=== PATIENT | male | born 1955 | race Two or more races ===

== ENCOUNTER → 2020-11-05 10:47 | Outpatient (BNVA) | payer MEDICARE, MEDICAID, SELFPAY | PROVIDERS: PCP Internal Medicine; Visit Provider Urology | DX: Z13.89 Encounter for screening for other disorder (principal) | CPT/HCPCS: Q3014 ==

== ENCOUNTER → 2021-04-29 08:52 | Outpatient (REF) | payer MEDICARE, MEDICAID, SELFPAY | LOC: HO.SL 08:52 | PROVIDERS: Visit Provider Physician Assistant Medical | DX: G47.33 Obstructive sleep apnea (adult) (pediatric) (principal); G47.31 Primary central sleep apnea | CPT/HCPCS: 95806 ==

== ENCOUNTER → 2021-09-13 08:10 | Outpatient (BNVA) | payer MEDICARE, MEDICAID, SELFPAY | PROVIDERS: Visit Provider Internal Medicine | DX: M79.18 Myalgia, other site (principal) | CPT/HCPCS: 20553; 99202; J3300 ==

== ENCOUNTER → 2021-10-11 08:14 | Outpatient (BNVA) | payer MEDICARE, MEDICAID, SELFPAY | PROVIDERS: PCP Internal Medicine; Visit Provider Internal Medicine | DX: M43.06 Spondylolysis, lumbar region (principal) | CPT/HCPCS: 99212 ==

== ENCOUNTER 2021-11-02 08:25 | Outpatient (REF) | payer MEDICARE, MEDICAID, SELFPAY ==
[2021-11-02 09:47] LABS: Prostate Specific Antigen 2.16 ng/mL (<0.05-4.0)
== END 2021-11-02 08:26 | disposition home or self-care (01) ==
LOC: HO.LAB 08:25
PROVIDERS: Visit Provider Urology
DX: Z12.5 Encounter for screening for malignant neoplasm of prostate (principal); N40.1 Benign prostatic hyperplasia with lower urinary tract symptoms; N13.8 Other obstructive and reflux uropathy
CPT/HCPCS: 36415; 84153

== ENCOUNTER → 2021-11-09 10:06 | Outpatient (BNVA) | payer MEDICARE, MEDICAID, SELFPAY | PROVIDERS: PCP Internal Medicine; Visit Provider Urology | DX: N40.1 Benign prostatic hyperplasia with lower urinary tract symptoms (principal); R35.1 Nocturia; N52.9 Male erectile dysfunction, unspecified | CPT/HCPCS: Q3014 ==

== ENCOUNTER 2021-11-17 06:19 | Outpatient (REF) | payer MEDICARE, MEDICAID, SELFPAY ==
--- NOTE | ~2021-11-17 | FL_ITS ---
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 TECHNIQUE: Fluoroscopy performed by pain management physician. Fluoroscopy time: 0.3 minutes DAP: 0.533 Gycm2 Images: 3 FINDINGS: There are spinal needles overlying the bilateral outer L3, L4, and L5 neural foramen. There is contrast seen in the respective nerve sheaths. Some early transforaminal epidural extension is suggested. No visible vascular communication. FL/FL guidance in treatment room IMPRESSION: Fluoroscopy for pain management procedures.
== END 2021-11-17 06:20 | disposition home or self-care (01) ==
LOC: HO.RADIR 06:19
PROVIDERS: Visit Provider Internal Medicine
DX: M47.816 Spondylosis without myelopathy or radiculopathy, lumbar region (principal)
CPT/HCPCS: 64493; 64494; Q9967

== ENCOUNTER → 2021-11-19 11:19 | Outpatient (BNVA) | payer MEDICARE, MEDICAID, SELFPAY | PROVIDERS: PCP Internal Medicine; Visit Provider Internal Medicine | DX: M47.816 Spondylosis without myelopathy or radiculopathy, lumbar region (principal) | CPT/HCPCS: Q3014 ==

== ENCOUNTER 2021-12-29 06:07 | Outpatient (REF) | payer MEDICARE, MEDICAID, SELFPAY ==
--- NOTE | ~2021-12-29 | FL_ITS ---
EXAMINATION: XR FLUOROSCOPY WITH IMAGES CLINICAL INFORMATION: Spondylosis without myelopathy or radiculopathy. COMPARISON: November 17, 2021 TECHNIQUE: Fluoroscopy performed by Dr. Atul Navarrete. Fluoroscopy time: 0.2 minutes DAP: 0.922 Gycm2 Images: 3 FINDINGS: 3 images show needles and contrast in place about the lateral aspects of the L3, L4, and L5 neural foramina. FL/FL guidance in treatment room IMPRESSION: Images for pain management.
== END 2021-12-29 06:08 | disposition home or self-care (01) ==
LOC: HO.RADIR 06:07
PROVIDERS: Visit Provider Internal Medicine
DX: M47.816 Spondylosis without myelopathy or radiculopathy, lumbar region (principal); I10 Essential (primary) hypertension
CPT/HCPCS: 64493; 64494; J2795; Q9967

== ENCOUNTER → 2022-01-03 16:02 | Outpatient (BNVA) | payer MEDICARE, MEDICAID, SELFPAY | PROVIDERS: PCP Internal Medicine; Visit Provider Internal Medicine | DX: M47.816 Spondylosis without myelopathy or radiculopathy, lumbar region (principal) | CPT/HCPCS: Q3014 ==